=== PATIENT | female | born 1970 | race Caucasian/White ===

== ENCOUNTER 2016-07-25 08:47 | Emergency (ER) | payer MEDICAID ==
[2016-07-25] MEDS ORDERED: PANTOPRAZOLE SODIUM 40 MG VIAL IV ONE (09:42)
[2016-07-25] MEDS ORDERED: ONDANSETRON 4 MG/2ML 2 ML VIAL ONE (09:42)
[2016-07-25] MEDS ORDERED: SODIUM CHLORIDE 0.9% 1,000 ML ONE (09:42)
[2016-07-25] MEDS ORDERED: KETOROLAC TROMETHAMINE 30 MG/ML 1 ML VIAL ONE (09:43)
[2016-07-25 09:51] LABS: BASO % 0.4 % (0.2-1.0); EOS # 0.3 (0.0-0.5); EOS % 3.3 % (0.9-2.9); HEMATOCRIT 39.3 % (37.0-47.0); HEMOGLOBIN 12.5 gm/l (12.0-16.0); IMM NEUT% 0.5 % (0-1); LYMPH # 2.3 (1.0-4.8); LYMPH % 27.9 % (15-45); MEAN CELL VOLUME 85.1 fl (81.0-99.0); MEAN CORPUSCULAR HEMOGLOBIN 27.1 pg (27.0-31.0); MEAN CORPUSCULAR HGB CONC 31.8 g/dl (33.0-37.0); MEAN PLATELET VOLUME 10.5 fl (7.4-10.4); MONO # 0.5 (0.0-0.8); MONO % 5.8 % (4-12); NEUT % 62.1 % (43-75); PLATELET COUNT 346 K/mm3 (130-400); RED CELL DISTRIBUTION WIDTH 14.4 % (11.5-14.5)
[2016-07-25 10:09] LABS: ALB/GLOB RATIO 1.2 (>1.0); ALBUMIN 3.8 gm/dL (3.5-5.7); CALCIUM 8.7 mg/dL (8.6-10.3)
--- NOTE | 2016-07-25 10:17 | US ---
ABDOMINAL-LIMITED: 07/25/2016 9:34 AM CLINICAL HISTORY: Right upper quadrant pain for 2 days. Nausea and vomiting.. STUDY: Limited right upper quadrant ultrasound COMPARISON: none FINDINGS: Gallbladder: Wall thickness: Normal Cholelithiasis: none Pericholecystic Fluid: none Sonographic Muñoz's Sign: negative Bile ducts: Proximal common bile duct measures 5 mm. Overlying bowel gas limits assessment more distally. Limited visualized Liver and RUQ structures: Diffuse fatty infiltration to the liver with fatty sparing in the gallbladder fossa. IMPRESSION: No sonographic findings of acute cholecystitis or cholelithiasis. Nuclear medicine scintigraphy or ERCP could be helpful in further assessment as clinically warranted. Diffuse fatty infiltration to the liver with focal sparing in the gallbladder fossa. Report was uploaded to the electronic medical record at approximately 1013 hours on 07/24/2016.
[2016-07-25] MEDS ORDERED: MAALOX/LIDO2%VISC/SIMETHICONE 40 ML BOT ONE (10:36)
== END 2016-07-25 11:16 | disposition home or self-care (01) ==
LOC: ED 08:47
DX: R10.10 Upper abdominal pain, unspecified (principal); K21.9 Gastro-esophageal reflux disease without esophagitis
CPT/HCPCS: 83690; 82150; 85025; 80053; 84484; 76705; 96375 ×2; 99284; 96374; 99283; A9270; C9113; J1885; J2405; J7030